=== PATIENT | male | born 1980 | race Caucasian/White ===

== ENCOUNTER 2019-09-18 03:05 | Emergency (ER) | payer OTHER ==
[2019-09-18 03:13] VITALS: BP 138/74; BMI 28.0
[2019-09-18 03:21] VITALS: TEMP 98.6
--- NOTE | 2019-09-18 03:33 | PDOC ---
Attending Attestation - Resident Resident Name: Lorenzo Chao - ED Attending Attestation I have performed the following: I have examined & evaluated the patient, The case was reviewed & discussed with the resident, I agree w/resident's findings & plan, Exceptions are as noted - HPI HPI: 09/18/19 06:05 See resident HPI - Physicial Exam PE: 09/18/19 06:05 Agree with documented exam - Medical Decision Making 09/18/19 06:05 38M c/o anxiety and palpitations, no cp, n/v, diaphoresis Pt low risk for cardiac pathology ekg non-iscehmic, nsr dc home with pcp f/u Discharge - Discharge Information Problems reviewed: Yes Clinical Impression/Diagnosis: Palpitations, Panic attack Condition: Stable Disposition: HOME - Follow up/Referral - Patient Discharge Instructions Patient Printed Discharge Instructions: DI for Panic Disorder, DI for Palpitations Additional Instructions: Your examination was reassuring. Please follow up with your primary care doctor in the next 5-10 days. Return to the Emergency Department if you experience new or worsening symptoms. Borrero examen fue tranquilizador. Andrés un seguimiento con borrero mdico de atencin primaria en los prximos 5-10 fontaine. Regrese al Departamento de emergencias si experimenta sntomas nuevos o que empeoran. Print Language: AMERICAN - Post Discharge Activity
--- NOTE | 2019-09-18 03:54 | PDOC ---
History of Present Illness - General Chief Complaint: Chest Pain Stated Complaint: CHEST PAIN Time Seen by Provider: 09/18/19 03:14 History Source: Patient Exam Limitations: Language Barrier (cyracom) - History of Present Illness Initial Comments: 09/18/19 03:49 38M w/o PMH BIBEMS for evaluation of palpitations and anxiety; accompanied by boyfriend. pt was stressed from work and father being in the hospital; episode occurred around 11pm. Symptoms improving but was advised by friends to be evaluated. Endorses prior similar episodes in the [place] but never formally evaluated for these sx in [place]. Denies audio-visual changes, numbness, tingling, weakness. Denies any chest pain. Denies f/c, n/v, abd pain. NKDA. Past History - Psycho-Social/Smoking History Smoking History: Never smoked Have you smoked in the past 12 months: No Information on smoking cessation initiated: No - Substance Abuse Hx (Audit-C & DAST Scrn) How often the patient has a drink containing alcohol: Never Score: In Men: 4 or > Positive; In Women: 3 or > Positive: 0 Screen Result (Pos requires Nsg. Audit-10AR): Negative In the last yr the pt used illegal drug/Rx for NonMed reason: No Score: Yes response is considered Positive: 0 Screen Result (Positive result requires Nsg. DAST-10): Negative Review of Systems - Review of Systems Comments:: 09/18/19 05:27 CONSTITUTIONAL: Denies F / C HEENT: Denies headache, lightheadedness, dizziness, changes in vision / hearing, diplopia, blurry vision, sore throat, rhinorrhea RESP: Denies SOB CARD: +palpitations, since resolved Denies chest pain GI: Denies N / V / D, abdominal pain, bloody stool, inability to tolerate PO : Denies dysuria, hematuria, frequency NEURO: Denies numbness, tingling, weakness PSYCH: +anxiety MSK: Denies back pain SKIN: Denies rashes *Physical Exam - Vital Signs Last Vital Signs Temp Pulse Resp BP Pulse Ox 98.6 F 82 20 138/74 97 09/18/19 03:21 09/18/19 03:11 09/18/19 03:11 09/18/19 03:11 09/18/19 03:11 - Physical Exam 09/18/19 05:27 GEN: Well appearing, NAD, comfortable. AAOx3. HEENT: NC/AT, CN II-XII intact, EOMI, PERRL. No facial asymmetry. Moist mucous membranes. Normal voice. Supple neck w/ FROM. CV: S1/S2, RRR, no m/r/g LUNG: CTAB, no wheezes, crackles, rales, rhonchi. GI: Soft, ndnt, +BS, no guarding, no rebound. MSK: 2+ distal pulses. No LE edema. No obvious deformities of all extremities. SKIN: Warm, dry, no rashes appreciated. PSYCH: Normal mood and affect; cooperative, fluent, coherent NEURO: Moving all extremities well. 5/5 UE strength b/l. 5/5 LE strength b/l. Sensation symmetric and intact throughout. Ambulates w/ normal gait. Medical Decision Making - Medical Decision Making 09/18/19 05:27 38M o/w healthy BIBEMS for eval of anxiety and palpitations. No chest pain. no cardiac risk factors. Benign exam. Pt at baseline now. EKG 0344 HR 77 NSR, intervals and axis wnl, no TWI, no JOSEPH/D DC home w/ reassurance Discharge - Discharge Information Problems reviewed: Yes Clinical Impression/Diagnosis: Palpitations, Panic attack Condition: Stable Disposition: HOME - Admission No - Follow up/Referral - Patient Discharge Instructions Patient Printed Discharge Instructions: DI for Panic Disorder, DI for Palpitations Additional Instructions: Your examination was reassuring. Please follow up with your primary care doctor in the next 5-10 days. Return to the Emergency Department if you experience new or worsening symptoms. Borrero examen fue tranquilizador. Andrés un seguimiento con borrero mdico de atencin primaria en los prximos 5-10 fontaine. Regrese al Departamento de emergencias si experimenta sntomas nuevos o que empeoran. Print Language: BANGLADESHI - Post Discharge Activity
[2019-09-18 04:51] VITALS: PULSE 86
--- NOTE | 2019-09-18 10:21 | EKG ---
Test Reason : Blood Pressure : / mmHG Vent. Rate : 077 BPM Atrial Rate : 077 BPM P-R Int : 152 ms QRS Dur : 082 ms QT Int : 362 ms P-R-T Axes : 034 017 024 degrees QTc Int : 409 ms NORMAL SINUS RHYTHM NORMAL ECG NO PREVIOUS ECGS AVAILABLE Confirmed by LINA PEREZ MD ([id number]) on 09/18/2019 10:20:59 AM Referred By: Confirmed By:LINA PEREZ MD
== END 2019-09-18 04:34 | disposition home or self-care (01) ==
LOC: JER 03:05
DX: R00.2 Palpitations (principal); F41.0 Panic disorder [episodic paroxysmal anxiety]
CPT/HCPCS: 93005; 93010; 99283-25